=== PATIENT | female | born 2005 | race Caucasian/White ===

== ENCOUNTER 2023-03-02 18:07 | Inpatient (IN) | payer OTHER, SELFPAY ==
[~2023-03-02] VITALS: Ht 157.5 cm; Wt 82.2 kg
[2023-03-02] MEDS ORDERED: IRON65TA2 PO (18:33)
[2023-03-02] MEDS ORDERED: PRENTAB9 PO (18:33)
[2023-03-02 18:50] VITALS: BP 127/82
[2023-03-02] MEDS ORDERED: LACTATED RINGER'S 1000 ML IV STA (19:17)
[2023-03-02] MEDS ORDERED: OXYTOCIN DRIP 30 UNITS in IV 1 EA IV PRN ×4 (19:20)
[2023-03-02] MEDS ORDERED: CARBOPROST TROMETHAMINE 250 MCG/ML AMP IM PRN (19:20)
[2023-03-02] MEDS ORDERED: METHYLERGONOVINE MALEATE 0.2MG/ML 1ML VIAL IM PRN (19:20)
[2023-03-02] MEDS ORDERED: OXYTOCIN INJ 10UNITS/ML 1ML VIAL IM PRN (19:20)
[2023-03-02] MEDS ORDERED: TRANEXAMIC ACID INJection 1,000 MG in NS 100 ML IV PRN (19:20)
[2023-03-02] MEDS ORDERED: LIDOCAINE 1% MDV 20ML VIAL INFIL PRN (19:20)
[2023-03-02] MEDS ORDERED: PROMETHAZINE 25MG/ML 1ML VIAL IV PRN (19:30)
[2023-03-02] MEDS ORDERED: NALBUPHINE HCL (10 MG/ML) 100MG/10ML MDV IV PRN (19:30)
[2023-03-02 19:43] LABS: HEMATOCRIT 35.5 % (36.0-47.0); MEAN CORPUSCULAR HEMOGLOBIN 29.9 pg (27.0-33.0); MEAN CORPUSCULAR HGB CONC 33.8 g/dl (32.0-36.5); MEAN CORPUSCULAR VOLUME 88.3 fl (80.0-96.0); PLATELET COUNT, AUTOMATED 282 10^3/uL (150-450); RED BLOOD COUNT 4.02 10^6/uL (4.00-5.40); WHITE BLOOD COUNT 9.4 10^3/uL (4.0-10.0)
[2023-03-02] MEDS: miSOPROStol 50MCG 1/2 TABLET PO PRN (19:44)
[2023-03-02 19:45] VITALS: BP 118/83
[2023-03-02 20:16] VITALS: BP 123/76
[2023-03-02 20:45] VITALS: BP 117/80
[2023-03-02 21:41] VITALS: BP 106/55
[2023-03-03] VITALS (58 sets, daily range): BP systolic 95–149; BP diastolic 52–90; O2SAT 97–99
[2023-03-03] MEDS: miSOPROStol 50MCG 1/2 TABLET PO PRN ×2 (00:30→04:44)
[2023-03-03] MEDS ORDERED: OMEP10CASR PO (08:48)
[2023-03-03] MEDS ORDERED: COLA100C5 PO (08:48)
[2023-03-03] MEDS ORDERED: HOME MED LIST COMPLETE! XX SCH (08:50)
[2023-03-03] MEDS ORDERED: OXYTOCIN DRIP 30 UNITS in IV 1 EA IV SCH (11:55)
[2023-03-03] MEDS: LR 1,000 ML IV SCH ×3 (12:07→18:43)
[2023-03-03] MEDS ORDERED: FENTANYL 2MCG/ML ROPIVACAINE 0.2% IN 0.9% NACL 100ML IVBAG As Ordered ONE (16:28)
[2023-03-03] MEDS ORDERED: FENTANYL/ROPIVACAINE/NACL BAG 100 ML EPIDURAL SCH (17:55)
[2023-03-03] MEDS ORDERED: ONDANSETRON 4MG 2ML VIAL IV PRN (17:55)
[2023-03-03] MEDS ORDERED: diphenhydrAMINE 50MG/ML VIAL IV PRN (17:55)
[2023-03-03] MEDS ORDERED: LR 500 ML IV PRN (17:55)
[2023-03-03] MEDS ORDERED: ePHEDrine SULFATE 25 MG/5 ML(5MG/ML) SYRINGE IVP PRN (17:55)
[2023-03-03] MEDS ORDERED: EPIDURAL/PCA KEYS XX PRN (17:55)
[2023-03-03] MEDS ORDERED: NALOXONE INJ 0.4MG/1ML VIAL IV PRN (17:55)
[2023-03-03] MEDS ORDERED: CALCIUM CARBONATE 500 MG CHEW U/D PO ONE (19:20)
[2023-03-04 00:36] VITALS: BP 118/58
[2023-03-04 00:36] LABS: CORD GAS ABE V -6.3; CORD GAS HCO3 V 20.9 MMOL/L; CORD GAS PCO2 V 47.6 mmHg; CORD GAS PH V 7.261 UNITS; CORD GAS PO2 V 21.8 mmHg; CORD GAS SBC V 18.2 MMOL/L; CORD GAS TCO2 V 22.4 MMOL/L
[2023-03-04 00:38] LABS: CORD GAS ABE A -10.7; CORD GAS HCO3 A 18.9 MMOL/L; CORD GAS O2 SAT A 35.2 %; CORD GAS PCO2 A 57.4 mmHg; CORD GAS PH A 7.136 UNITS; CORD GAS PO2 A 22.2 mmHg; CORD GAS SBC A 14.9 MMOL/L; CORD GAS TCO2 A 20.7 MMOL/L
[2023-03-04 00:43] VITALS: BP 111/59
[2023-03-04] MEDS ORDERED: DOCUSATE SODIUM 100MG CAPSULE PO PRN (00:50)
[2023-03-04] MEDS ORDERED: DIBUCAINE 1% OINTMENT 30GM TOP PRN (00:50)
[2023-03-04] MEDS ORDERED: RHOGAM 300MCG (1500IU) INJ IM SCH (00:50)
[2023-03-04] MEDS ORDERED: OXYTOCIN DRIP 30 UNITS in IV 1 EA IV SCH (00:50)
[2023-03-04] MEDS ORDERED: LR 1,000 ML IV SCH (00:50)
[2023-03-04] MEDS ORDERED: METHYLERGONOVINE MALEATE 0.2MG/ML 1ML VIAL IM PRN (00:50)
[2023-03-04 00:58] VITALS: BP 124/62
[2023-03-04] MEDS: IBUPROFEN 800 MG TAB PO SCH ×3 (01:10→18:10)
[2023-03-04] MEDS: ACETAMINOPHEN 500 MG TAB PO SCH ×4 (01:10→19:45)
[2023-03-04 01:15] VITALS: BP 116/65
[2023-03-04 05:59] VITALS: BP 122/65; O2SAT 97
[2023-03-04] MEDS ORDERED: PRENATAL VITAMINS CHEWABLE TABLET PO SCH (09:00)
[2023-03-04] MEDS: PRENATAL VITAMINS CHEWABLE TABLET PO SCH (09:30)
[2023-03-04 18:00] VITALS: BP 125/85; O2SAT 98
[2023-03-04] MEDS: OMEPRAZOLE 20MG CAP PO SCH (21:54)
[2023-03-05] MEDS: IBUPROFEN 800 MG TAB PO SCH ×3 (02:19→19:24)
[2023-03-05] MEDS: ACETAMINOPHEN 500 MG TAB PO SCH ×4 (02:19→20:36)
[2023-03-05 06:00] VITALS: BP 122/70; O2SAT 98
[2023-03-05 07:37] LABS: HEMOGLOBIN 10.5 g/dl (12.0-15.5); MEAN CORPUSCULAR HEMOGLOBIN 30.3 pg (27.0-33.0); MEAN CORPUSCULAR HGB CONC 32.8 g/dl (32.0-36.5); MEAN CORPUSCULAR VOLUME 92.5 fl (80.0-96.0); PLATELET COUNT, AUTOMATED 214 10^3/uL (150-450); RED BLOOD COUNT 3.46 10^6/uL (4.00-5.40); WHITE BLOOD COUNT 9.6 10^3/uL (4.0-10.0)
[2023-03-05] MEDS: PRENATAL VITAMINS CHEWABLE TABLET PO SCH (08:20)
[2023-03-05 18:00] VITALS: BP 123/81; O2SAT 100
[2023-03-05] MEDS: OMEPRAZOLE 20MG CAP PO SCH (20:35)
[2023-03-06] MEDS: IBUPROFEN 800 MG TAB PO SCH ×2 (02:00→09:35)
[2023-03-06] MEDS: ACETAMINOPHEN 500 MG TAB PO SCH ×2 (02:01→08:06)
[2023-03-06 06:00] VITALS: BP 117/66; O2SAT 97
[2023-03-06] MEDS: PRENATAL VITAMINS CHEWABLE TABLET PO SCH (08:06)
[2023-03-06] MEDS ORDERED: MEASLES,MUMPS,RUBELLA VACCINE INJ (MMR-II) SC.IMMUN ONE (09:00)
[2023-03-06] MEDS ORDERED: BOOSTRIX VACCINE (TETANUS/DIPHTH/ACEL. PERTUSSIS) 0.5ML SYR IM.IMMUN ONE (09:00)
== END 2023-03-06 11:55 | disposition home or self-care (01) | DRG 807 ==
LOC: M LDI 18:07 → M OBS 03-04 02:26
PROVIDERS: ADMIT Obstetrics & Gynecology; ATTEND Obstetrics & Gynecology
PROC: 3E0P7GC Introduction of Other Therapeutic Substance into Female Reproductive, Via Natural or Artificial Opening (ICD-10-PCS; 2023-03-02)
PROC: 10907ZC Drainage of Amniotic Fluid, Therapeutic from Products of Conception, Via Natural or Artificial Opening (ICD-10-PCS; 2023-03-03)
PROC: 10E0XZZ Delivery of Products of Conception, External Approach (ICD-10-PCS; principal; 2023-03-04)
DX: O48.0 Post-term pregnancy (principal); Z37.0 Single live birth; F32.A Depression, unspecified; F41.9 Anxiety disorder, unspecified; Z91.51 Personal history of suicidal behavior; O99.344 Other mental disorders complicating childbirth; Z3A.41 41 weeks gestation of pregnancy; O69.81X0 Labor and delivery complicated by cord around neck, without compression, not applicable or unspecified

== ENCOUNTER 2023-12-23 10:58 | Inpatient (IN) | payer OTHER ==
[~2023-12-23] VITALS: Ht 157.5 cm; Wt 68.1 kg
[~2023-12-23 10:58] MED LIST: COLA100C5 PO; IRON65TA2 PO; OMEP10CASR PO; PRENTAB9 PO
[2023-12-23 12:17] LABS: HEMATOCRIT 41.1 % (36.0-47.0); HEMOGLOBIN 13.3 g/dl (12.0-15.5); MEAN CORPUSCULAR HEMOGLOBIN 27.9 pg (27.0-33.0); MEAN CORPUSCULAR HGB CONC 32.4 g/dl (32.0-36.5); MEAN CORPUSCULAR VOLUME 86.3 fl (80.0-96.0); PLATELET COUNT, AUTOMATED 332 10^3/uL (150-450); RED BLOOD COUNT 4.76 10^6/uL (4.00-5.40); WHITE BLOOD COUNT 6.6 10^3/uL (4.0-10.0)
[2023-12-23 12:40] LABS: ETHYL ALCOHOL (ETHANOL) < 0.003 % (0.000-0.010)
[2023-12-23 12:41] LABS: SALICYLATE LEVEL < 3.0 MG/DL (<30)
[2023-12-23 12:42] LABS: ALKALINE PHOSPHATASE 112 U/L (46-116); ALT/SGPT 45 U/L (7.0-40); AST/SGOT 20 U/L (<34); BILIRUBIN,DIRECT < 0.1 MG/DL (<0.4); BILIRUBIN,TOTAL 0.3 MG/DL (0.3-1.2); BLOOD UREA NITROGEN 11 MG/DL (9-23); CALCIUM LEVEL 9.4 MG/DL (8.5-10.1); CARBON DIOXIDE LEVEL 29 MMOL/L (20-31); CHLORIDE LEVEL 104 MMOL/L (98-107); CREATININE FOR GFR 0.77 MG/DL (0.55-1.30); GLUCOSE, FASTING 93 MG/DL (60-100); POTASSIUM SERUM 4.7 MMOL/L (3.5-5.1); SODIUM LEVEL 139 MMOL/L (136-145); TOTAL PROTEIN 7.1 G/DL (5.7-8.2)
[2023-12-23 12:44] LABS: THYROID STIMULATING HORMONE 1.623 uIU/ML (0.48-4.17)
[2023-12-23 12:50] LABS: AMPHETAMINES LEVEL URINE NEGATIVE (NEGATIVE); BARBITURATES URINE NEGATIVE (NEGATIVE); BENZODIAZEPINES URINE NEGATIVE (NEGATIVE); COCAINE METABOLITE URINE NEGATIVE (NEGATIVE)
[2023-12-23 12:51] LABS: CANNABINOIDS URINE NEGATIVE (NEGATIVE); METHADONE URINE NEGATIVE (NEGATIVE); OPIATES URINE NEGATIVE (NEGATIVE); PHENCYCLIDINE URINE NEGATIVE (NEGATIVE)
[2023-12-23] MEDS ORDERED: BUSP10TA PO (13:03)
[2023-12-23] MEDS ORDERED: VENL150C43 PO (13:03)
[2023-12-23] MEDS ORDERED: HOME MED LIST COMPLETE! XX SCH (13:50)
[2023-12-23] MEDS: ACETAMINOPHEN TAB 650MG DOSE (2X325MG) PO ONE (14:37)
[2023-12-23] MEDS ORDERED: ACETAMINOPHEN TAB 650MG DOSE (2X325MG) PO PRN (15:40)
[2023-12-23] MEDS ORDERED: IBUPROFEN 400MG TAB PO PRN (15:40)
[2023-12-23] MEDS ORDERED: MAALOX 30 ML SUSP *UDC PO PRN (15:40)
[2023-12-23] MEDS ORDERED: MOM 30ML SUSPENSION UDC PO PRN (15:40)
[2023-12-23] MEDS ORDERED: diphenhydrAMINE 25MG CAP PO PRN (15:40)
[2023-12-23] MEDS: VENLAFAXINE **XR** 75MG CAPSULE PO SCH (16:19)
[2023-12-23 17:35] VITALS: BP 129/78; TEMP 97.8; O2SAT 99
[2023-12-23] MEDS ORDERED: busPIRone 10 MG TAB PO SCH (21:00)
[2023-12-24 06:18] VITALS: BP 138/77; TEMP 97.8; O2SAT 97
[2023-12-24] MEDS: busPIRone 10 MG TAB PO SCH (09:14)
[2023-12-24] MEDS: VENLAFAXINE **XR** 75MG CAPSULE PO SCH (10:00)
[2023-12-24 18:23] VITALS: BP 115/66; TEMP 97.4; O2SAT 99
[2023-12-24] MEDS: traZODone 50 MG TAB PO PRN (20:58)
[2023-12-25 06:13] VITALS: BP 124/60; TEMP 98.1
[2023-12-25] MEDS ORDERED: TRAZ-252 PO (10:48)
[2023-12-25] MEDS ORDERED: BUSP10TA PO (10:48)
[2023-12-25] MEDS ORDERED: VENL75CA47 PO (10:48)
== END 2023-12-25 12:07 | disposition home or self-care (01) | DRG 881 ==
LOC: M ED 10:58 → EDBD 10:58 → M ED INP 15:40 → M PSY 17:26
PROVIDERS: ADMIT Student in an Organized Health Care Education/Training Program; ATTEND Student in an Organized Health Care Education/Training Program
DX: F32.A Depression, unspecified (principal); F17.290 Nicotine dependence, other tobacco product, uncomplicated; R74.01 Elevation of levels of liver transaminase levels; Z63.0 Problems in relationship with spouse or partner; Z62.819 Personal history of unspecified abuse in childhood; Z81.8 Family history of other mental and behavioral disorders; Z79.899 Other long term (current) drug therapy